=== PATIENT | female | born 1990 | race Caucasian/White ===

== ENCOUNTER 2024-06-20 12:11 | Emergency (ER) | payer SELFPAY ==
[~2024-06-20] VITALS: Ht 170.2 cm; Wt 59.1 kg
[~2024-06-20 12:11] MED LIST: CEPHALEXIN500 M1 PO; NO HOME MEDICATIONS; NORCO 325 MG-7.1 TAB PO
[2024-06-20 12:17] VITALS: TEMP 98.3
[2024-06-20] MEDS ORDERED: Ibuprofen 600 MG TAB PO ONE (13:30)
[2024-06-20] MEDS ORDERED: AMOXICILLIN 8751 TAB PO (14:44)
[2024-06-20 14:52] VITALS: BP 108/73; PULSE 70
== END 2024-06-20 14:54 | disposition home or self-care (01) ==
LOC: COL.ER 12:11
DX: S51.812A Laceration without foreign body of left forearm, initial encounter (principal); S51.811A Laceration without foreign body of right forearm, initial encounter; S51.852A Open bite of left forearm, initial encounter; S51.851A Open bite of right forearm, initial encounter; W54.0XXA Bitten by dog, initial encounter